=== PATIENT | female | born 1950 | race Caucasian/White ===

== ENCOUNTER 2022-08-03 08:55 | Outpatient (CLI) | payer MEDICARE, SELFPAY ==
--- NOTE | ~2022-08-03 | MM_ITS ---
EXAMINATION: MM screening ramon BI w emerson HISTORY: Screening mammogram TECHNIQUE: Craniocaudal and mediolateral oblique 3-D tomosynthesis images were obtained and synthetic 2-D images were generated. CAD analysis was submitted and interpreted. COMPARISON: Serial mammogram examinations dating back to June 22, 2013 BREAST PARENCHYMAL COMPOSITION: There are scattered areas of fibroglandular density. FINDINGS: Bilateral mammographic asymmetries are noted. Bilateral diagnostic mammography is recommend ed, with ultrasound if required IMPRESSION: 1. Bilateral mammographic asymmetries 2. Bilateral diagnostic mammogram is recommended, with ultrasound if required BI-RADS Category 0: Incomplete: Needs additional imaging evaluation. Reviewed, dictated and finalized at location A.
== END 2022-08-03 08:56 | disposition home or self-care (01) ==
LOC: ANHIMG 08:56
PROVIDERS: PCP Physician Assistant; Visit Provider Physician Assistant
DX: Z12.31 Encounter for screening mammogram for malignant neoplasm of breast (principal); R92.8 Other abnormal and inconclusive findings on diagnostic imaging of breast
CPT/HCPCS: 77063; 77067

== ENCOUNTER 2022-09-09 11:37 | Outpatient (CLI) | payer MEDICARE, SELFPAY ==
--- NOTE | ~2022-09-09 | MM_ITS ---
EXAMINATION: MM diagnostic ramon BI w emerson HISTORY: Bilateral asymmetries on screening mammogram TECHNIQUE: Additional 3-D tomosynthesis images of the breasts were performed and synthetic 2-D images were generated. CAD analysis was submitted and interpreted. COMPARISON: 08/03/2022, 09/28/2018, 08/19/2017 BREAST PARENCHYMAL COMPOSITION: There are scattered areas of fibroglandular density. FINDINGS: There is a return to baseline fibroglandular appearance with spot compression of the breast s in the areas questioned on screening mammogram. No suspicious mass, calcification, or architectural distortion are identified. IMPRESSION: 1. No mammographic evidence of malignancy. 2. Recommend routine screening mammography in one year. BI-RADS Category 1: Negative Reviewed, dictated and finalized at location A.
== END 2022-09-09 11:38 | disposition home or self-care (01) ==
LOC: ANHIMG 11:39
PROVIDERS: PCP Physician Assistant; Visit Provider Physician Assistant
DX: R92.8 Other abnormal and inconclusive findings on diagnostic imaging of breast (principal)
CPT/HCPCS: 77062; 77066; G0279

== ENCOUNTER 2023-09-20 16:19 | Outpatient (CLI) | payer MEDICARE, SELFPAY ==
--- NOTE | ~2023-09-20 | MM_ITS ---
EXAMINATION: MM screening ramon BI w emerson HISTORY: Screening TECHNIQUE: Craniocaudal and mediolateral oblique 3-D tomosynthesis images were obtained and synthetic 2-D images were generated. CAD analysis was submitted and interpreted. COMPARISON: Comparison to multiple prior studies sequentially, with oldest reviewed study dated 08/17. BREAST PARENCHYMAL COMPOSITION: Not dense: There are scattered areas of fibroglandular density. FINDINGS: There is no evidence of suspicious mass, calcification, or architectural distortion to sugg est malignancy in either breast. There has been no suspicious interval change. IMPRESSION: 1. No mammographic evidence of malignancy. 2. Recommend routine screening mammography in one year. BI-RADS Category 1: Negative Reviewed, dictated and finalized at location B.
== END 2023-09-20 16:20 | disposition home or self-care (01) ==
LOC: ANHIMG 16:21
PROVIDERS: PCP Physician Assistant; Visit Provider Nurse Practitioner Family
DX: Z12.31 Encounter for screening mammogram for malignant neoplasm of breast (principal)
CPT/HCPCS: 77063; 77067

== ENCOUNTER 2024-02-24 10:35 | Outpatient (CLI) | payer MEDICARE, SELFPAY ==
[2024-02-24 11:53] LABS: Influenza A QL RT-PCR Negative (Negative); Influenza B QL RT-PCR Negative (Negative); RSV RNA, RT-PCR Negative (Negative); SARS-CoV-2 RNA PCR Negative (Negative)
== END 2024-02-24 10:36 | disposition home or self-care (01) ==
LOC: ANHLAB 10:36
PROVIDERS: PCP Physician Assistant; Visit Provider Nurse Practitioner Family
DX: J02.9 Acute pharyngitis, unspecified (principal)
CPT/HCPCS: 87637

== ENCOUNTER 2024-08-20 09:19 | Outpatient (CLI) | payer MEDICARE, SELFPAY ==
--- NOTE | ~2024-08-20 | XR_ITS ---
XR knee LT min 4V Ordering provider: Queenie Junior NP History: . M25.562 - Pain in left knee . Comparison: None. FINDINGS: BONES: No acute fracture or dislocation. JOINT SPACES: Narrowing of the medial compartment. SOFT TISSUES: Thickened patellar tendon. Clinical and MRI evaluation advised. IMPRESSION: No acute osseous abnormality left knee. Moderate osteoarthritic changes of the left knee. Soft tissue swelling in the area of the patellar tendon which may indicate tendinosis versus tear. MR I is advised. Reviewed, dictated and finalized at location A. IMPRESSION: No acute osseous abnormality left knee. Moderate osteoarthritic changes of the left knee. Soft tissue swelling in the area of the patellar tendon which may indicate tend inosis versus tear. MRI is advised.
--- NOTE | ~2024-08-20 | XR_ITS ---
Right Knee Technique: AP, lateral, and sunrise views were obtained. Clinical History: Pain Findings: No fracture or dislocation is seen. Osseous alignment is anatomic. Mild tricompartmental de generative spurring present. Probable loose bodies present in the suprapatellar region. No joint effu uzair is seen. Impression: Mild tricompartmental degenerative spurring. Probable loose bodies in the suprapatellar region. Reviewed, dictated and finalized at location M. Impression: Mild tricompartmental degenerative spurring. Probable loose bodies in the suprapatellar region.
--- OUTSIDE RECORDS SUMMARY | 2024-08-20 09:53 | XMS_ITS | Encounter Summary ---
Author Organization [facility] Address [address] [place] [address] Care Team Providers Care Swat Team Member Name Role Phone Josh Harrell MD Primary Care Provider Dariana Saenz PA-C Primary Care Provider [phone] Queenie Junior Primary Care Provider [phone] Encounter Details Date Type Department Care Team (Late st Contact Info) Description 08/21/[address] [facility] Family Medicine - [place] [address] [place], [facility] Provider Appointment Reschedule Social History Tobacco Use Types Packs/Day Years Used Date Smoking Tobacco: Former Cigarettes Q uit: 2019 Smokeless Tobacco: Never Alcohol Use Standard Drinks/Week Comments Yes 0 (1 standard drink = 0.6 oz pur e alcohol) occasionally PHQ-2 Answer Date Recorded PHQ-2 Score - If the patient scores above 3, please move on to questions 3-9 0 03/24/2021 Comments No Sex and Gender Information Value Date Recorded Sex Assigned at Female 08/08/2023 8:01 AM CDT Legal Sex Female 4:36 PM CDT Gender Identity Female 03/23/2021 8:18 AM MATERIAL CONTROLLER Sexual Orientation Straight 08/08/2023 8: 01 AM CDT documented as of this encounter Plan of Treatment Not on file documented as of this encounter Visit Diagnoses Not on filedocumented in this encounter Additional Health Concerns Assessment Noted Time PHQ-9 Depression Total Score: 0 03/24/19 12:32 PM MATERIAL CONTROLLER documented as of this encounter Care Teams Swat Team Member Relationship Specialty Start Date End Date Josh Harrell MD PCP - General FAMILY PRACTICE 09/25/20 11/16/21 Dariana Valadez PA-C [address] [place] [address] PCP - General PHYSICIAN EXTRACTOR LOADER AND UNLOADER 11/17/21 12/29/23 Queenie Junior APNP [address] [phone] PCP - General Nurse Practitioner Family 12/30/23 documented as of this encounter
--- OUTSIDE RECORDS SUMMARY | 2024-08-20 09:53 | XMS_ITS | Encounter Summary ---
Author Organization [facility] Address [address] [place] [address] Care Team Providers Care Forestry Crew Chief Name Role Phone Dariana Valadez PA-C Primary Care Provider [phone] Queenie Junior Primary Care Provider Encounter Details Date Type Department Care Team (Late st Contact Info) Description 04/02/2022 Funifi Message Enc [facility] BUSINESS OFFICE [address] [place] [address] [place], [facility] Provider Breast Cancer Screening Social History Tobacco Use Types Packs/Day Years Used Date Smoking Tobacco: Former Cigarettes Q uit: 2019 Smokeless Tobacco: Never Alcohol Use Standard Drinks/Week Comments Yes 0 (1 standard drink = 0.6 oz pur e alcohol) occasionally PHQ-2 Answer Date Recorded Patient Health Questionnaire-2 Score 0 04/05/2022 Comments No Sex and Gender Information Value Date Recorded Sex Assigned at Female 08/08/2023 8:01 AM CDT Legal Sex Female 4:36 PM CDT Gender Identity Female 03/23/2021 8:18 AM POSTAL TRANSPORTATION CLERK Sexual Orientation Straight 08/08/2023 8: 01 AM CDT COVID-19 Exposure Response Date Recorded In the last 10 days, have yo u been in contact with someone who was confirmed or suspected to have Coronavirus/COVID-19? No / Unsure 04/05/2022 12:48 PM POSTAL TRANSPORTATION CLERK documented as of this encounter Functional Status * Over the past 2 weeks, how often have you been bothered by any of the following problems? Question Answer Date of Assessment Author Status Little interest or pleasure in doing things Not at all 04/05/2022 12:55 PM Hernan Pringle MA Act austen Feeling down, depressed, or hopeless Not at all 04/05/2022 12:55 PM Hernan Pringle MA Active Patient Health Questionnaire-2 Score 0 04/05/2022 12:55 PM Hernan Pringle MA Active * If you checked off any problems on this questionnaire so far, Question Answer Date of Assessment Author Status How difficult have these problems made it for you to do your work, take care of things at home, or get along with other people? Not difficult at all 04/05/2022 12:55 PM Hernan Pringle MA Active documented as of this encounter Plan of Treatment Not on file documented as of this encounter Visit Diagnoses Not on filedocumented in this encounter Additional Health Concerns Assessment Noted Time PHQ-9 Depression Total Score: 0 09/30/19 22 1:42 PM CDT documented as of this encounter Care Teams Forestry Crew Chief Relationship Specialty Start Date End Date Dariana Valadez PA-C [address] [place] [address] PCP - General PHYSICIAN PROCESS ENGINEERING MANAGER 11/17/21 12/29/23 Queenie Junior APNP [address] [phone] PCP - General Nurse Practitioner Family 12/30/23 documented as of this encounter
--- OUTSIDE RECORDS SUMMARY | 2024-08-20 09:53 | XMS_ITS | Clinical Summary ---
Author Organization [facility] Address [address] [place] [address] Care Team Providers Care Dialysis Tech Name Role Phone Queenie Junior Primary Care Provider [phone] Allergies No known active allergies Medications amLODIPine (NORVASC) 10 MG tabletIndications:P rimary hypertension Take 1 tablet (10 mg total) by mouth daily. 90 tablet 1 4 Active losartan (COZAAR) 50 MG tabletIndications:P rimary hypertension Take 1 tablet (50 mg total) by mouth daily. 90 tablet 1 4 Active pravastatin (PRAVACHOL) 40 MG tabletIndications:M ixed hyperlipidemia Take 1 tablet (40 mg total) by mouth daily. 90 tablet 1 4 Active Active Problems Problem Noted Date Diagnosed Date Refused influenza vaccine 03/22/2023 Elevated blood sugar 09/15/2022 Refused pneumococcal vaccination 04/05/2022 COVID-19 vaccination refused 04/05/2022 Primary hypertension 03/24/2021 Mixed hyperlipidemia 03/24/2021 Resolved Problems Problem Noted Date Diagnosed Date Resolved Date Hyperparathyroidism (HHS/HCC) 02/07/2012 03/22/2023 Hypercalcemia 01/14/2012 09/29/2021 Immunizations Immunization Administration Dates Next Due Influenza Adult (Generic) 03/17/2021(Deferred: P atient Refused) Pneumococcal(Ppv 23)Aka Pneumovax 03/17/2021(Def erred: Patient Refused) Family History Medical History Relation Comments Heart Disease Father Hypertension Father Hypertension Mother Relation Status Comments Father Mother Alive Social History Tobacco Use Types Packs/Day Years Used Date Smoking Tobacco: Former Cigarettes Q uit: 2019 Smokeless Tobacco: Never Tobacco Cessation:Counseling Given: No Alcohol Use Standard Drinks/Week Comments Yes 0 (1 standard drink = 0.6 oz pur e alcohol) occasionally PHQ-2 Answer Date Recorded Patient Health Questionnaire-2 Score 0 03/22/2023 Comments No Sex and Gender Information Value Date Recorded Sex Assigned at Female 08/08/2023 8:01 AM CDT Legal Sex Female 4:36 PM CDT Gender Identity Female 03/23/2021 8:18 AM PAN WASHER Sexual Orientation Straight 08/08/2023 8: 01 AM CDT Last Filed Vital Signs Vital Sign Reading Time Taken Comments Blood Pressure 121/76 03/22/2023 12:37 PM PAN WASHER Pulse 60 03/22/2023 12:37 PM PAN WASHER Temperature 37.1 C (98.8 F) 03/22/2023 12:37 PM PAN WASHER Respiratory Rate 16 09/25/2020 8:53 AM CDT Oxygen Saturation 97% 03/22/2023 12:37 PM PAN WASHER Inhaled Oxygen Concentration - - Weight 73.5 kg (162 lb) 03/22/2023 12:37 PM PAN WASHER Height 165.1 cm (5' 5) 04/05/2022 12:51 PM PAN WASHER Body Mass Index 26.96 04/05/2022 12:51 PM PAN WASHER Plan of Treatment Health Maintenance Due Date Last Done Comments DTaP, Tdap and Td Vaccines (1 - Tdap) 01/30/1971 Pneumococcal Vaccine: 50+ Years (1 of 1 - PCV) 01/30/2002 Zoster Vaccines (1 of 2) 01/30/2002 Annual Medicare Wellness Visit 01/30/2017 COVID-19 Vaccine ( - season) 2023 PHQ-2 (Physician [place]) 03/07/2024 03/22/2023 Mammogram Screening 09/19/2025 09/20/2023, 09/09/2022, 09/09/2022, Additional history exists RSV Immunization or 60+ Years (1 - 1-dose 75+ series) 01/30/2027 Colorectal Cancer Screening Colonoscopy (10 Years) 01/01/2032 12/31/2021, 01/10/2019, 01/10/2019, Additional history exists Dexa Scan (General) Completed 09/09/2015, 08/29/2015, 08/10/2013, Additional history exists Hepatitis C Completed 09/02/2022 Meningococcal B Vaccine Aged Out No l onger eligible based on patient's age to complete this topic Meningococcal Vaccine Aged Out No raymundo wade eligible based on patient's age to complete this topic RSV Immunizations Under 20 Months Aged Out No longer eligible based on patient's age to complete this topic Procedures Procedure Name Priority Date/Time Associated Diagnosis Comments MAMMOGRAM GENERIC (SCAN ORDER) 09/20/2023 HEPATITIS C ANTIBODY W/RFX TO HCV RNA Routine 09/02/2022 8:28 AM CDT Need for hepatitis C screening test COLONOSCOPY GENERIC (SCAN ORDER) 12/31/2021 BONE DENSITY GENERIC (SCAN ORDER) 09/09/2015 from Last 3 Months or Most Recently Relevant to Health Maintenance Results * MAMMOGRAM GENERIC (SCAN ORDER) (09/20/2023) Anatomical Region Laterality Modality Other 09/20/2023 [facility] Scanned SCANNING Final Resu lt * HEPATITIS C ANTIBODY W/RFX TO HCV RNA (09/02/2022 8:28 AM CDT) HEPATITIS C AB NON-REACT RITO NON-REACT RITO [employer] [facility] Comment: HCV antibody was non-reactive. There is no laboratory evidence of HCV infection. In most cases, no further action is required. However, if recent HCV exposure is suspected, a test for HCV RNA (test code 29689) is suggested. For additional information please refer to http://education.FUNGO STUDIOS/faq/LMT39b4 (This link is being provided for informational/ educational purposes only.) 09/02/2022 8:28 AM CDT 09/02/2022 8:29 AM CDT Narrative [facility] - 09/03/2022 6:37 AM CDT FASTING:YES FASTING: YES Resulting Agency Comment Performing Organization Information: Site ID: [id number] Name: [facility] Address: [address] [address] Director: Chinmay Parmar MD us Dariana Valadez PA-C LABORATORY Final Resu lt [facility] [address] [address], [place] * COLONOSCOPY GENERIC (12/31/2021) 12/31/2021 [facility] Scanned SCANNING Final Resu lt * BONE DENSITY GENERIC (09/09/2015) Anatomical Region Laterality Modality Other 09/09/2015 Narrative 09/09/2015 Ordered by an unspecified provider. us Documents Scanned SCANNING Final Result from Last 3 Months or Most Recently Relevant to Health Maintenance Insurance [employer] Care Teams Dialysis Tech Relationship Specialty Start Date End Date Queenie Junior APNP [address] [place] [address] PCP - General Nurse Practitioner Family 12/30/23
== END 2024-08-20 09:20 | disposition home or self-care (01) ==
PROVIDERS: PCP Nurse Practitioner Family; Visit Provider Nurse Practitioner Family
DX: M17.0 Bilateral primary osteoarthritis of knee (principal)
CPT/HCPCS: 73564

== ENCOUNTER 2024-10-09 08:25 | Outpatient (CLI) | payer MEDICARE, SELFPAY ==
--- NOTE | ~2024-10-09 | MR_ITS ---
MRI of the left knee Clinical history: Abnormal findings of diagnostic imaging Technique: Coronal proton density and proton density-weighted images, sagittal proton-density and T2 fat-sat images, and axial proton-density fat-saturated images were acquired. Findings: Anterior and posterior cruciate ligaments are intact. Medial collateral ligament and the la teral collateral ligament compress are intact. Popliteus tendon is intact. No definite medial or lateral meniscal tear seen. There is extensive grade IV chondromalacia the patellar apex and lateral facet. There is extensive mo derate chondromalacia the femoral trochlea. There is patchy moderate to high-grade chondromalacia of the medial femoral condyle. There is patchy mild to moderate chondral malacia of the lateral compartm ent. Extensive tricompartmental osteophyte formation is present. Extensor mechanism is intact. Small joint effusion present. No Ramey's cyst. Impression: Advanced tricompartmental osteoarthritis. No ligamentous injury or meniscal tear seen. Small joint effusion. Reviewed, dictated and finalized at [facility]. Impression: Advanced tricompartmental osteoarthritis. No ligamentous injury or meniscal tear seen. Small joint effusion.
== END 2024-10-09 08:26 | disposition home or self-care (01) ==
LOC: MICIMG 08:25
PROVIDERS: PCP Nurse Practitioner Family; Visit Provider Nurse Practitioner Family
DX: R93.6 Abnormal findings on diagnostic imaging of limbs (principal); M17.12 Unilateral primary osteoarthritis, left knee; M25.462 Effusion, left knee
CPT/HCPCS: 73721

== ENCOUNTER 2024-11-15 15:03 | Outpatient (CLI) | payer MEDICARE, SELFPAY ==
--- NOTE | ~2024-11-15 | MM_ITS ---
EXAMINATION: MM screening ramon BI w emerson HISTORY: Screening TECHNIQUE: Craniocaudal and mediolateral oblique 3-D tomosynthesis images were obtained and synthetic 2-D images were generated. CAD analysis was submitted and interpreted. COMPARISON: Comparison to multiple prior studies sequentially, with oldest reviewed study dated , 08/05/2015 BREAST PARENCHYMAL COMPOSITION: There are scattered areas of fibroglandular density. FINDINGS: There is no evidence of suspicious mass, calcification, or architectural distortion to suggest malignancy in either breast. IMPRESSION: 1. No mammographic evidence of malignancy. 2. Recommend routine screening mammography in one year. BI-RADS Category 1: Negative Reviewed, dictated and finalized at location B.
--- OUTSIDE RECORDS SUMMARY | 2024-11-15 16:36 | XMS_ITS | Encounter Summary ---
Author Organization [facility] Address [address] [place] [address] Care Team Providers Care A Operator Name Role Phone Dariana Valadez PA-C Primary Care Provider [phone] Queenie Junior Primary Care Provider [phone] Encounter Details Date Type Department Care Team (Late st Contact Info) Description 04/02/2022 Airizu Message Enc [facility] BUSINESS OFFICE [address] [place] [address] [place], [facility] Provider Breast Cancer Screening Social History Tobacco [...] CDT Gender Identity Female 03/23/2021 8:18 AM PURCHASING DIRECTOR Sexual Orientation Straight 08/08/2023 8: 01 AM CDT COVID-19 Exposure Response Date Recorded In the last 10 days, have yo u been in contact with someone who was confirmed or suspected to have Coronavirus/COVID-19? No / Unsure 04/05/2022 12:48 PM PURCHASING DIRECTOR documented as of this encounter Functional Status [...] documented as of this encounter Care Teams A Operator Relationship Specialty Start Date End Date Dariana Valadez PA-C [address] [place] [address] PCP - General PHYSICIAN SURGICAL SERVICES DIRECTOR 11/17/21 12/29/23 Queenie Junior APNP [address] [phone] PCP - General Nurse Practitioner Family 12/30/23 documented as of this encounter
--- OUTSIDE RECORDS SUMMARY | 2024-11-15 16:36 | XMS_ITS | Encounter Summary ---
Author Organization [facility] Address [address] [place] [address] Care Team Providers Care Radiosonde Operator Name Role Phone Josh Harrell MD Primary Care Provider Dariana Saenz PA-C Primary Care Provider [phone] Queenie Junior Primary Care Provider [phone] Encounter Details Date Type Department Care Team (Late st Contact Info) Description 08/21/2021 MedVentive Message Enc [facility] Family Medicine - [place] [address] [place], [facility] Provider Appointment Reschedule Social History Tobacco Use [...] CDT Gender Identity Female 03/23/2021 8:18 AM COMPUTER VIDEO GAME DESIGNER Sexual Orientation Straight 08/08/2023 8: 01 AM CDT documented as of this encounter Plan of Treatment Not on file documented as of this encounter Visit Diagnoses Not on filedocumented in this encounter Additional Health Concerns Assessment Noted Time PHQ-9 Depression Total Score: 0 03/24/19 12:32 PM COMPUTER VIDEO GAME DESIGNER documented as of this encounter Care Teams Radiosonde Operator Relationship Specialty Start Date End Date Josh Harrell MD PCP - General FAMILY PRACTICE 09/25/20 11/16/21 Dariana Valadez PA-C [address] [place] [address] PCP - General PHYSICIAN PULPWOOD BUYER 11/17/21 12/29/23 Queenie Junior APNP [address] [phone] PCP - General Nurse Practitioner Family 12/30/23 documented as of this encounter
--- OUTSIDE RECORDS SUMMARY | 2024-11-15 16:36 | XMS_ITS | Patient Health Record ---
Author Organization [facility] Address [address] [place], [place] [id number] Care Team Providers Care Calciminer Name Role Phone OH HALL Unavailable [phone] Josh Harrell Unavailable Unavailable Reason For Referral No Information Plan Of Treatment No Information Insurance Providers Payer Name Payer Address Payer Phone Subscriber Number Group Number Insured Name Patient Relationship to Insured Coverage Start Date Coverage End Date [employer] [address] [place] [address] [id number] MACHO ORTEGA Self - patient is the insured [facility] ATTN CLAIMS [address] [place] [address] [id number] ROBERTO ORTEGA Spouse - patient is the spouse of the insured
--- OUTSIDE RECORDS SUMMARY | 2024-11-15 16:36 | XMS_ITS | Clinical Summary ---
Author Organization [facility] Address [address] [place] [address] Care Team Providers Care Filler Shredder Helper Name Role Phone Queenie Junior Primary Care Provider [phone] Allergies No known active allergies Medications amLODIPine [...] CDT Gender Identity Female 03/23/2021 8:18 AM OPTICIAN Sexual Orientation Straight 08/08/2023 8: 01 AM CDT Last Filed Vital Signs Vital Sign Reading Time Taken Comments Blood Pressure 121/76 03/22/2023 12:37 PM OPTICIAN Pulse 60 03/22/2023 12:37 PM OPTICIAN Temperature 37.1 C (98.8 F) 03/22/2023 12:37 PM OPTICIAN Respiratory Rate 16 09/25/2020 8:53 AM CDT Oxygen Saturation 97% 03/22/2023 12:37 PM OPTICIAN Inhaled Oxygen Concentration - - Weight 73.5 kg (162 lb) 03/22/2023 12:37 PM OPTICIAN Height 165.1 cm (5' 5) 04/05/2022 12:51 PM OPTICIAN Body Mass Index 26.96 04/05/2022 12:51 PM OPTICIAN Plan of Treatment Health Maintenance Due Date Last Done Comments DTaP, Tdap and Td Vaccines (1 - Tdap) 01/30/1971 Pneumococcal Vaccine: 50+ Years (1 of 1 - PCV) 01/30/2002 Zoster Vaccines (1 of 2) 01/30/2002 Annual Medicare Wellness Visit 01/30/2017 PHQ-2 (Physician [place]) 03/07/2024 03/22/2023 COVID-19 Vaccine ( - season) 2024 Mammogram Screening 09/19/2025 09/20/2023, 09/09/2022, 09/09/2022, Additional [...] HEPATITIS C AB NON-REACT RITO NON-REACT RITO [employer] [facility] Comment: HCV antibody was non-reactive. There is no laboratory evidence of HCV infection. In most cases, no further action is required. However, if recent HCV exposure is suspected, a test for HCV RNA (test code 19726) is suggested. For additional information please refer to http://education.mobileo/faq/GDT36i5 (This link is being provided for informational/ educational purposes only.) 09/02/2022 8:28 AM CDT 09/02/2022 8:29 AM CDT Narrative [facility]LEX [facility] - 09/03/2022 6:37 AM CDT FASTING:YES FASTING: YES Resulting Agency Comment Performing Organization Information: Site ID: [id number] Name: [facility] Address: [address] [address] Director: Chinmay Parmar MD us Dariana Valadez PA-C LABORATORY Final Resu lt [facility] [address] [address], [place] * COLONOSCOPY GENERIC (12/31/2021) 12/31/2021 [facility] Scanned SCANNING Final Resu lt * BONE DENSITY GENERIC (09/09/2015) Anatomical Region Laterality Modality Other 09/09/2015 Narrative 09/09/2015 Ordered by an unspecified provider. us Documents Scanned SCANNING Final Result from Last 3 Months or Most Recently Relevant to Health Maintenance Insurance [employer] Care Teams Filler Shredder Helper Relationship Specialty Start Date End Date Queenie Junior APNP [address] [place] [address] PCP - General Nurse Practitioner Family 12/30/23
== END 2024-11-15 15:04 | disposition home or self-care (01) ==
LOC: ANHFOHIMG 15:05
PROVIDERS: PCP Nurse Practitioner Family; Visit Provider Nurse Practitioner Family
DX: Z12.31 Encounter for screening mammogram for malignant neoplasm of breast (principal)
CPT/HCPCS: 77063; 77067